=== PATIENT | female | born 1990 | race Caucasian/White ===

== ENCOUNTER 2018-08-03 23:25 | Emergency (ER) | payer OTHER ==
[~2018-08-03] VITALS: Ht 167.6 cm; Wt 57.8 kg
[2018-08-03 23:30] VITALS: BP 133/81
--- NOTE | 2018-08-03 23:35 | NUR ---
ERMD AT BEDSIDE EVALUATING PT.
--- NOTE | 2018-08-03 23:43 | NUR ---
XRAY AT BEDSIDE.
[2018-08-04] MEDS ORDERED: fentaNYL 0.05 MG/ML VIAL IVP ONE
--- NOTE | 2018-08-04 00:30 | NUR ---
TIME OUT CALLED WITH DR. ESQUIVEL, RN X 2, RT, EMT AT BEDSIDE.
--- NOTE | 2018-08-04 00:37 | NUR ---
PROCEDURE COMPLETE. PT TOLERATED WELL. WILL CONTINUE TO MONITOR POST SEDATION.
[2018-08-04] MEDS ORDERED: ETOMIDATE 20 MG/10 ML VIAL IVP ONE ×2 (00:40)
--- NOTE | 2018-08-04 01:20 | NUR ---
XRAY AT BEDSIDE POST REDUCTION FILM
[2018-08-04 01:35] VITALS: BP 130/64
--- NOTE | 2018-08-04 01:35 | NUR ---
Patient discharged with v/s stable. Written and verbal after care instructions given and explained. Patient verbalized understanding. Ambulatory with steady gait. All questions addressed prior to discharge. Advised to follow up with PMD.
== END 2018-08-04 01:35 | disposition home or self-care (01) ==
LOC: MED 23:25
DX: S43.004A Unspecified dislocation of right shoulder joint, initial encounter (principal); W01.0XXA Fall on same level from slipping, tripping and stumbling without subsequent striking against object, initial encounter; Y93.89 Activity, other specified; Y92.89 Other specified places as the place of occurrence of the external cause; Y99.8 Other external cause status
CPT/HCPCS: 23650; 73030; 99152; 99285; G0500; J3010; J3490; Q0092

== ENCOUNTER 2020-09-21 10:13 | Emergency (ER) | payer OTHER ==
[~2020-09-21] VITALS: Ht 167.6 cm; Wt 59.0 kg
[2020-09-21 10:17] VITALS: BP 133/77
--- NOTE | 2020-09-21 10:19 | NUR ---
Patient ambulated to bed 11. RN evaluating the patient at bedside.
--- NOTE | 2020-09-21 10:45 | NUR ---
30 Y/O F BIB SELF FROM HOME, PATIENT PRESENTS TO ED WITH ABD PAIN AND PELVIC PAIN THAT STARTED TODAY. PT STATES SHE HAS BEEN HAVING PRESSURE AND URGENCY TO URINATE WITH HESTITENCY AND RETENTION . DENIES N/V/D; SKIN IS PINK/WARM/DRY; AAOX4 WITH EVEN AND STEADY GAIT; LUNGS CLEAR BL; HR EVEN AND REGULAR; PT DENIES ANY FEVER, CP, SOB, OR COUGH AT THIS TIME; PATIENT STATES PAIN OF 6/10 AT THIS TIME; VSS; PATIENT POSITIONED FOR COMFORT; HOB ELEVATED; BEDRAILS UP X2; BED DOWN. ER MD MADE AWARE OF PT STATUS. LMP: 08/26/20 PMH: NONE [facility] MED: NONE
[2020-09-21] MEDS ORDERED: KETOROLAC 15 MG/ML VIAL IVP ONE (10:50)
[2020-09-21 11:08] LABS: BASOPHILS # (AUTO) 0.2 K/uL (0.00-0.22); EOSINOPHILS % (AUTO) 0.5 % (0.0-4.0); HEMATOCRIT 34.7 % (36-48); HEMOGLOBIN 11.5 g/dL (12.0-16.0); LYMPHOCYTES # (AUTO) 1.3 K/uL (2.5-16.5); LYMPHOCYTES % (AUTO) 15.6 % (20.5-51.1); MEAN CORPUSCULAR HEMOGLOBIN 29 pg (27-31); MEAN CORPUSCULAR HGB CONC 33 g/dL (33-37); MEAN CORPUSCULAR VOLUME 87.9 fL (80-94); MONOCYTES # (AUTO) 0.3 K/uL (0.8-1.0); NEUTROPHILS # (AUTO) 6.3 K/uL (1.8-7.7); NEUTROPHILS % (AUTO) 77.9 % (42.2-75.2); PLATELET COUNT (AUTO) 243 K/uL (140-450); RED BLOOD CELL COUNT(AUTO) 3.95 MIL/uL (4.20-5.40); WHITE BLOOD COUNT (AUTO) 8.1 K/uL (4.8-10.8)
[2020-09-21 11:20] LABS: CARBON DIOXIDE 28.5 mmol/L (21-32); CREATININE 0.5 mg/dL (0.6-1.3); POTASSIUM 3.5 mmol/L (3.5-5.1); TOTAL BILIRUBIN 0.4 mg/dL (0.0-1.0)
[2020-09-21 13:11] LABS: APPEARANCE,URINE HAZY (CLEAR); BILIRUBIN,URINE NEGATIVE (NEGATIVE); BLOOD, URINE 1+ (NEGATIVE); COLOR,URINE YELLOW (YELLOW); UGLUCOSE NEGATIVE (NEGATIVE)
[2020-09-21 13:12] LABS: LEUKOCYTE ESTERASE ,URINE 1+ (NEGATIVE); NITRITE, URINE POSITIVE (NEGATIVE)
[2020-09-21 13:50] LABS: RBC,URINE 0-5 /HPF (0-5)
--- NOTE | 2020-09-21 14:47 | NUR ---
PT WAS GIVEN RX FOR CLINDAMYCIN, ELIMITE.
--- NOTE | 2020-09-21 15:10 | NUR ---
Pelvic exam performed by MARCO ANTONIO MACHADO with EUNICE AGUILAR at bedside for entire examination. Patient tolerated procedure. Patient assisted to position of comfort after examination.
[2020-09-21] MEDS ORDERED: FLUCONAZOLE 100 MG TAB PO ONE (15:15)
[2020-09-21] MEDS ORDERED: CRUSHER, PILL MC ONE (15:24)
[2020-09-21] MEDS ORDERED: SULF-58 PO (17:16)
[2020-09-21] MEDS ORDERED: DOXY100C9 PO (17:16)
[2020-09-21 17:58] VITALS: BP 133/77
--- NOTE | 2020-09-21 17:58 | NUR ---
Patient discharged with v/s stable. Written and verbal after care instructions given and explained. Patient alert, oriented and verbalized understanding of instructions. Ambulatory with steady gait. All questions addressed prior to discharge. ID band removed. Patient advised to follow up with PMD. Rx of DOXYCYCLINE, SULFAMETHOXAZOLE given. Patient educated on indication of medication including possible reaction and side effects. Opportunity to ask questions provided and answered.
--- NOTE | 2020-09-25 14:13 | NUR ---
LATE ENTRY---Culture results received from lab. Results shown to Dr. Suarez . No new orders needed at this time. Treatment appropriate.
== END 2020-09-21 17:52 | disposition home or self-care (01) ==
LOC: MED 10:13
DX: N12 Tubulo-interstitial nephritis, not specified as acute or chronic (principal); N73.9 Female pelvic inflammatory disease, unspecified; Z79.899 Other long term (current) drug therapy
CPT/HCPCS: 36415; 74177; 76830; 76856; 80053; 81001; 81025; 83690; 85025; 87086; 87210; 93976; 96374; 99285; J1885; Q9967